=== PATIENT | female | born 2005 | race Caucasian/White ===

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

== ENCOUNTER 2025-02-15 19:05 | Emergency (ER) | payer OTHER, SELFPAY ==
[2025-02-15 19:14] VITALS: BP 125/83; PULSE 90; RESP 18; TEMP 36.8; O2SAT 99
--- NOTE | 2025-02-15 19:23 | ED.HA ---
HPI - Headache General Chief Complaint: Headache Stated Complaint: headache Time Seen by Provider: 02/15/25 19:20 Source: patient Mode of arrival: ambulatory Limitations: no limitations History of Present Illness HPI Narrative: Valeria is a 19-year-old female patient presenting to the clinic today with complaints of feeling feverish, headache, body aches, chills, nausea, and vomiting x2 days. She reports she had to call in sick to work this morning as she was feeling bad but her symptoms have gradually improved throughout the day. Is requesting a work note to go back to work tomorrow. Has taken Tylenol for symptoms. Rates her pain currently a 07/30. Related Data Home Medications ?Medication ?Instructions ?Recorded ?Confirmed ?Last Taken ?Type loratadine 10 mg tablet 10 mg PO DAILY 11/09/22 06/23/23 Unknown History montelukast 10 mg tablet 10 mg PO DAILY 06/23/23 06/23/23 Unknown History norethindrone 1 mg-ethinyl tablet 02/15/25 Unknown History estradiol 20 mcg (21)-iron 75 mg (7) tablet (Aurovela Fe 1-20 (28)) Allergies Allergy/AdvReac Type Severity Reaction Status Date / Time No Known Allergies Allergy Verified 02/15/25 19:14 Review of Systems Review of Systems: Pertinent positives per HPI. Patient denies any rash, visual changes, dizziness, cough, runny nose, sore throat, shortness of breath, chest pain, palpitations, diarrhea, constipation, abdominal pain, or any urinary issues. PMFSH Comments At the time of my signature, I reviewed and agree with the nursing past medical, surgical, social, and family history. There is no relevant family history pertinent to the patient complaint. Exam Narrative: General: Well-developed, well nourished, in no apparent distress Head: Normocephalic, atraumatic Eyes: Pupils equally round and reactive to light bilaterally, EOM intact, sclera and conjunctive clear, no discharge, lids normal Ears: TMs intact and clear, ear canals cerumen, no drainage, grossly hearing normal. Nose: Nares patent, no discharge, no inflammation, no sinus tenderness. Mouth: Oropharynx without lesions or masses, good dentition, MMM. Neck: Supple, trachea midline, no enlargement of anterior or posterior cervical nodes, no thyroid masses or goiter palpable. Cardio: Regular rate and rhythm, s1 and s2 normal, no murmur appreciated. Resp: Clear to auscultation bilaterally anteriorly and posteriorly, no rhonchi, rales, wheezing or rubs Abdomen: Soft, pliable, bowel sounds present in all quadrants, generalized mild tender to palpation, no organomegly, no CVAT tenderness. Course Course Emergency Course: Portions of this record may have been created with voice recognition software. Level of Care: Express Care Visit Vital Signs Vital signs: Vital Signs Temperature 36.8 C 02/15/25 19:14 Pulse Rate 90 02/15/25 19:14 Respiratory Rate 18 02/15/25 19:14 Blood Pressure 125/83 02/15/25 19:14 Pulse Oximetry 99 02/15/25 19:14 Temperature 36.8 C 02/15/25 19:14 Pulse Rate 90 02/15/25 19:14 Respiratory Rate 18 02/15/25 19:14 Blood Pressure 125/83 02/15/25 19:14 Pulse Oximetry 99 02/15/25 19:14 Vital signs reviewed MDM - Headache MDM Narrative Medical decision making narrative: At the time of visit patient is resting comfortably on the exam table. Patient appears to be nontoxic. Complaints of feeling feverish, headache, body aches, chills, nausea, and vomiting x2 days. She reports she had to call in sick to work this morning as she was feeling bad but her symptoms have gradually improved throughout the day. Is requesting a work note to go back to work tomorrow. Has taken Tylenol for symptoms. Rates her pain currently a 4/10. Last menstrual period was 2 weeks ago. On exam patient has bilateral TMs intact and clear, nasal drainage, oral pharynx is normal, lung sounds are clear, heart rates regular rate and rhythm, and abdomen soft and pliable, nondistended, bowel sounds present all 4 quadrants, mild generalized tenderness to palpation, no CVAT tenderness. COVID and influenza testing was ordered Labs: COVID and influenza testing was performed and negative in the clinic today. Plan: I suspect patient has viral syndrome/headache/acute nausea/vomiting. Reports her symptoms are improving is requesting a work note to go back to work tomorrow. Supportive measures were discussed with the patient and they voiced understanding discharge instructions and agrees to treatment plan. Return precautions reviewed Differential Diagnosis Differential diagnosis: Likely migraine, tension headache, headache, sinusitis and other (URI, gastroenteritis, gastritis, GERD, viral syndrome, influenza, COVID) Discharge Plan Discharge Clinical Impression: Acute nausea with nonbilious vomiting, Acute viral syndrome Headache Qualifiers: Headache type: unspecified Headache chronicity pattern: acute headache Intractability: not intractable Qualified Code(s): R51.9 - Headache, unspecified Patient Disposition: Home Condition: Stable Instructions: Antibiotic Form Additional Instructions: COVID and influenza testing was negative in the clinic today. Increase fluids and stay well hydrated May take Tylenol or motrin as directed on bottle for pain/fever May use Flonase 1 spray in each nare daily May take OTC antihistamines such as Zyrtec or Claritin daily as directed on bottle May apply Vicks vapor rub to chest to open sinuses Sinus rinses for congestion Cepacol spray, cough drops, throat lozenges, warm tea with honey/lemon, gargle salt water to soothe throat BRAT diet for diarrhea Clear liquids x 24 hours then advance as tolerated for nausea/vomiting Go to the ED if you develop a worsening in your condition- high fever not controlled by Tylenol or Motrin, dehydration, weakness, lethargy, shortness of breath, or chest pain. Follow up with your PCP in 3-5 days if symptoms persist. Patient Language: Greenlandic Prescriptions: No Action loratadine 10 mg tablet 10 mg PO DAILY montelukast 10 mg tablet 10 mg PO DAILY norethindrone-e.estradiol-iron [Aurovela Fe 1-20 (28)] 1 mg-20 mcg (21)/75 mg (7) tablet Follow-up/Referrals: Jonathan,CASSI Zabala [Primary Care Provider, Unknown] Stand Alone Forms: Work/School Release IP Time of Disposition: 19:43 Quality NIHSS Nursing Documentation ED NIHSS nursing documentation: reviewed/agree
[2025-02-15 19:42] LABS: EDCOVIDSCREEN Negative (Negative); EDINFLUASCREEN Negative (Negative); EDINFLUBSCREEN Negative (Negative)
== END 2025-02-15 19:47 | disposition home or self-care (01) ==
PROVIDERS: Emergency Provider Nurse Practitioner Family; PCP Physician Assistant
DX: R11.2 Nausea with vomiting, unspecified (principal); B34.9 Viral infection, unspecified; R51.9 Headache, unspecified; Z20.822 Contact with and (suspected) exposure to COVID-19; J45.909 Unspecified asthma, uncomplicated
CPT/HCPCS: 87426; 87804; 99213; G0463

== ENCOUNTER 2025-03-28 14:28 | Emergency (ER) | payer OTHER, SELFPAY ==
--- NOTE | 2025-03-28 14:29 | ED.URI ---
HPI - URI/Sore Throat General Chief Complaint: Upper Respiratory Infection Stated Complaint: Sinus Time Seen by Provider: 03/28/25 14:29 Source: patient Mode of arrival: ambulatory Limitations: no limitations History of Present Illness HPI Narrative: Valeria is a 19-year-old female patient presenting to the clinic today with complaints of runny nose, cough, sinus congestion, sore throat, nausea, and vomiting x 6 days. She reports no known fevers, chills, body aches. Denies any chest pain or shortness of breath MD elicited complaint: sore throat and nasal congestion Related Data Home Medications ?Medication ?Instructions ?Recorded ?Confirmed ?Last Taken ?Type loratadine 10 mg tablet 10 mg PO DAILY 11/09/22 06/23/23 Unknown History montelukast 10 mg tablet 10 mg PO DAILY 06/23/23 06/23/23 Unknown History norethindrone 1 mg-ethinyl tablet 02/15/25 Unknown History estradiol 20 mcg (21)-iron 75 mg (7) tablet (Aurovela Fe 1-20 (28)) Allergies Allergy/AdvReac Type Severity Reaction Status Date / Time No Known Allergies Allergy Verified 03/28/25 14:30 Review of Systems Review of Systems: Pertinent positives per HPI. Patient denies any fever, chills, rash, headache, visual changes, dizziness, shortness of breath, chest pain, palpitations, nausea, vomiting, diarrhea, constipation, abdominal pain, or any urinary issues. PMFSH Comments At the time of my signature, I reviewed and agree with the nursing past medical, surgical, social, and family history. There is no relevant family history pertinent to the patient complaint. Exam Narrative: General: Well-developed, well nourished, in no apparent distress Head: Normocephalic, atraumatic Eyes: Pupils equally round and reactive to light bilaterally, EOM intact, sclera and conjunctive clear, no discharge, lids normal Ears: TMs intact and clear, ear canals clear, no drainage, grossly hearing normal. Nose: Nares patent, nasal discharge, mild inflammation, no sinus tenderness. Mouth: Oral pharynx without lesions or masses, good dentition, MMM. Neck: Supple, trachea midline, no enlargement of anterior or posterior cervical nodes, no thyroid masses or goiter palpable. Cardio: Regular rate and rhythm, s1 and s2 normal, no murmur appreciated. Resp: Clear to auscultation bilaterally, no rhonchi, rales, wheezing or rubs Course Course Level of Care: Express Care Visit Vital Signs Vital signs: Vital Signs Temperature 37.1 C 03/28/25 14:34 Pulse Rate 87 03/28/25 14:34 Respiratory Rate 18 03/28/25 14:34 Blood Pressure 117/66 03/28/25 14:34 Pulse Oximetry 99 03/28/25 14:34 Oxygen Delivery Room Air 03/28/25 14:34 Temperature 37.1 C 03/28/25 14:34 Pulse Rate 87 03/28/25 14:34 Respiratory Rate 18 03/28/25 14:34 Blood Pressure 117/66 03/28/25 14:34 Pulse Oximetry 99 03/28/25 14:34 Oxygen Delivery Room Air 03/28/25 14:34 MDM MDM Narrative Medical decision making narrative: At the time of visit patient is resting comfortably on the exam table. Patient appears to be nontoxic. complaints of runny nose, cough, sinus congestion, sore throat, nausea, and vomiting x 6 days. She reports no known fevers, chills, body aches. Denies any chest pain or shortness of breath. Exam patient has bilateral TMs intact and clear, clear nasal drainage, mild anterior turbinate inflammation, oral pharynx mildly red, no cervical lymphadenopathy, heart rates regular rate and rhythm, lung sounds are clear. COVID, flu, and strep test were ordered. Labs: Strep, COVID, and influenza testing were all negative. We will send strep for culture. Plan: I suspect patient URI/pharyngitis. Work/school note was given for today. Supportive measures were discussed with the patient and they voiced understanding discharge instructions and agrees to treatment plan. Return precautions reviewed Differential Diagnosis Differential Diagnosis: Differential diagnostic considerations for upper respiratory infection include upper respiratory infection, croup, otitis media, sinusitis, viral infection, bronchitis, influenza, pharyngitis, strep, uvulitis. Discharge Plan Discharge Clinical Impression: Viral infection Upper respiratory infection Qualifiers: URI type: unspecified URI Qualified Code(s): J06.9 - Acute upper respiratory infection, unspecified Pharyngitis Qualifiers: Pharyngitis/tonsillitis etiology: unspecified etiology Qualified Code(s): J02.9 - Acute pharyngitis, unspecified Patient Disposition: Home Condition: Stable Instructions: Antibiotic Form, Pharyngitis (ED), Viral Syndrome (ED), Cold Symptoms (ED) Additional Instructions: Strep, COVID, and influenza testing were all negative in the clinic today. Will send strep for culture if this comes back positive we will contact him place you on antibiotics at that time. No sign of bacterial infection in the clinic today. Increase fluids and stay well hydrated May take Tylenol or motrin as directed on bottle for pain/fever May use Flonase 1 spray in each nare daily May take OTC antihistamines such as Zyrtec or Claritin daily as directed on bottle May apply Vicks vapor rub to chest to open sinuses Sinus rinses for congestion Cepacol spray, cough drops, throat lozenges, warm tea with honey/lemon, gargle salt water to soothe throat BRAT diet for diarrhea Clear liquids x 24 hours then advance as tolerated for nausea/vomiting Go to the ED if you develop a worsening in your condition- high fever not controlled by Tylenol or Motrin, dehydration, weakness, lethargy, shortness of breath, or chest pain. Follow up with your PCP in 3-5 days if symptoms persist. Patient Language: Armenian Prescriptions: No Action loratadine 10 mg tablet 10 mg PO DAILY montelukast 10 mg tablet 10 mg PO DAILY norethindrone-e.estradiol-iron [Aurovela Fe 1-20 (28)] 1 mg-20 mcg (21)/75 mg (7) tablet Follow-up/Referrals: Jonathan,CASSI Zabala [Primary Care Provider, Unknown] Stand Alone Forms: Work/School Release IP Time of Disposition: 14:51 Quality NIHSS Nursing Documentation ED NIHSS nursing documentation: reviewed/agree
[2025-03-28 14:34] VITALS: BP 117/66; PULSE 87; RESP 18; TEMP 37.1; O2SAT 99
[2025-03-28 14:55] LABS: EDSTREPNEGPOS1 Negative (Negative)
[2025-03-28 15:02] LABS: EDCOVIDSCREEN Negative (Negative); EDINFLUASCREEN Negative (Negative); EDINFLUBSCREEN Negative (Negative)
== END 2025-03-28 15:05 | disposition home or self-care (01) ==
PROVIDERS: Emergency Provider Nurse Practitioner Family; PCP Physician Assistant
DX: B34.9 Viral infection, unspecified (principal); J06.9 Acute upper respiratory infection, unspecified; J02.9 Acute pharyngitis, unspecified; Z20.822 Contact with and (suspected) exposure to COVID-19
CPT/HCPCS: 87081; 87426; 87804; 87880; 99213; G0463